=== PATIENT | female | born 1945 | race Caucasian/White ===

== ENCOUNTER 2017-01-31 15:07 | Emergency (ER) | payer OTHER ==
[~2017-01-31] VITALS: Ht 144.8 cm; Wt 52.2 kg
[2017-01-31 15:18] VITALS: BP 138/84
--- NOTE | 2017-01-31 15:36 | ED MVC/FALL/TRAUMA COMPLAINT ---
History of Present Illness General Chief Complaint: Fall Stated Complaint: PT FELL AND HURT HER LT ARM Source: patient, family, old records Exam Limitations: no limitations Vital Signs & Intake/Output Vital Signs & Intake/Output Vital Signs Date Time Temp Pulse Resp B/P B/P Pulse O2 O2 Flow FiO2 Mean Ox Delivery Rate 01/31 1518 99.0 76 15 138/84 96 Room Air Room Air Allergies Coded Allergies: No Known Allergies (01/31/17) Reconcile Medications Esomeprazole (Nexium) 40 MG CAPSULE.DR 1 CAP PO DAILY GERD (Reported) Ibuprofen 600 MG TABLET 1 TAB PO TID PRN PAIN (Reported) with food Ibuprofen 400 MG TABLET 1 TAB PO TID ELBOW FRACTURE Oxycodone HCl/Acetaminophen (Percocet 5-325 MG Tablet) 5 MG-325 MG TABLET 1 TAB PO 4 TIMES/DAY ELBOW FRACTURE Oxycodone HCl/Acetaminophen (Percocet 5-325 MG Tablet) 5 MG-325 MG TABLET 1-2 TAB PO Q6P PRN PAIN Oxycodone HCl/Acetaminophen (Percocet 5-325 MG Tablet) 5 MG-325 MG TABLET 1-2 TAB PO Q6P PRN PAIN Triage Note: PT TO ED FOR C/C OF L ELBOW PAIN AND SWELLING S/P FELL DOWN THREE STAIRS AFTER BEING PULLED BY A DOG LEASH. PT DENIES HITTING HEAD, BUT DOES REPORT THAT SHE BLACKED OUT FOR ?A MINUTE. 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 +CMS TO LUE. Triage Nurses Notes Reviewed? yes HPI: 71F PRESENTING WITH FALL DOWN STAIRS AND ELBOW PAIN. WAS WALKING A DOG, THE DOG PULLED HER DOWN THE STAIRS BY THE LEASH, SHE LANDED ON HER LEFT ELBOW AND SHOULDER. DID NOT HIT HER HEAD. SHE IS UNSURE OF IF SHE LOST CONSCIOUSNESS OR NOT, BUT A FRIEND WAS THERE AND DID NOT SEE HER LOSE CONSCIOUSNESS. SHE WAS AWAKE AND ALERT AFTER. CURRENTLY, SHE COMPLAINS OF LEFT ELBOW PAIN AND SWELLING , AND IS UNABLE TO MOVE THE ELBOW DUE TO PAIN. SHE ALSO HAS PAIN TO THE LEFT SHOULDER AND AXILLA, BUT IS ABLE TO MOVE THESE. SHE HAS INTACT SENSATION IN HER ARM AND FINGERS AND HAS FULL STRENGTH AND RANGE OF MOTION OF THE SHOULDER, HAND, AND FINGERS. SHE DENIES HEADACHE, NAUSEA, VOMITING, CONFUSION, DIZZINESS, LIGHTHEADEDNESS, VISION CHANGE, NECK PAIN, BACK PAIN, CHEST PAIN, ABDOMINAL PAIN. Past History Travel History Traveled to [place] past 21 day No Medical History Any Pertinent Medical History? see below for history Gastrointestinal: GERD Surgical History Surgical History: non-contributory Psychosocial History What is your primary language Yoruba Tobacco Use: Never used ETOH Use: denies use Illicit Drug Use: denies illicit drug use Family History Hx Contributory? No Review of Systems Review of Systems Constitutional: Reports: no symptoms. Eyes: Reports: no symptoms. Ears, Nose, Throat, Mouth: Reports: no symptoms. Respiratory: Reports: no symptoms. Cardiovascular: Reports: no symptoms. Gastrointestinal/Abdominal: Reports: no symptoms. Genitourinary: Reports: no symptoms. Musculoskeletal: Reports: see HPI. Skin: Reports: no symptoms. Neurological/Psychological: Reports: no symptoms. All Other Systems: Reviewed and Negative Physical Exam Physical Exam General Appearance: well developed/nourished, no apparent distress, alert, awake , comfortable Head: atraumatic, normal appearance Eyes: Bilateral: normal appearance. 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 No Severe Sepsis Present: No Septic Shock Present: No Progress Differential Diagnosis: aoritic dissection, abd injury, C/T/L spine injury, ext injury, ICH, pelvis injury, pnemothorax, spinal cord injury Plan of Care: Orders Procedure Date/time Status XRY-SHOULDER COMPLETE-LEFT 01/31 1536 Active XRY-ELBOW 3 OR MORE VIEWS, L 01/31 1522 Active NO EVIDENCE OF SYNCOPE, HEAD INJURY, LOC. PATIENT IS NEUROLOGICALLY INTACT AND AT BASELINE PER PATIENT AND DAUGHTER. LEFT ELBOW WAS PLACED IN POSTERIOR SPLINT AND WILL FOLLOW UP WITH DR. ACUÑA OF ORTHOPEDICS TOMORROW FOR FOLLOW UP. SPOKE WITH DR. ACUÑA WHO AGREES WITH PLAN. (EVE TRAN,HASMUKH) Diagnostic Imaging: Viewed by Me: Radiology Read. Discussed w/RAD: Radiology Read. Radiology Impression: PATIENT: MARY HAYNES PRESENT AGE: 71 PATIENT ACCOUNT NO: [id number] : 47 LOCATION: [facility] ORDERING PHYSICIAN: HASMUKH PRADO MD SERVICE DATE: 01/31/17 EXAM TYPE : RAD - XRY-ELBOW 3 OR MORE VIEWS, L; XRY-SHOULDER COMPLETE-LEFT EXAMINATION: XR ELBOW, LEFT X-RAY SHOULDER, LEFT CLINICAL INFORMATION: Trauma COMPARISON: None TECHNIQUE: AP, lateral, and oblique views of the left elbow. 3 views of the left shoulder were obtained. FINDINGS: LEFT ELBOW: There is an acute fracture of the olecranon process. There is a 0.8 cm distance between the 2 fracture fragments. Significant associated soft tissue swelling and joint effusion noted. No other fracture is seen. There is no evidence of dislocation of the radial head. LEFT SHOULDER: There is no acute fracture or dislocation of the left shoulder. The acromioclavicular and coracoclavicular distances are within normal limits. The soft tissue is unremarkable. The visualized left lung is clear. IMPRESSION: Acute fracture of the left olecranon with associated soft tissue swelling and joint effusion. No acute fracture or dislocation of the left shoulder. DICTATED BY: KATIE FRIED MD DATE/TIME DICTATED:01/31/171599 CUT AND PRINT MACHINE OPERATOR: RONAK DATE/TIME TRANSCRIBED:01/31/171599 Departure Departure Disposition: HOME OR SELF CARE Condition: Stable Clinical Impression Primary Impression: Fracture of olecranon process, left, closed Secondary Impressions: Fall (on) (from) other stairs and steps, initial encounter Referrals: DOMENICO TRAN,ALIVIA ALARCON MD,ENRIQUETA WATTERS (PCP/Family) Additional Instructions: KEEP YOUR ARM SUPPORTED. FOLLOW UP WITH DR. ACUÑA TOMORROW IN HER OFFICE. IF YOU LOSE SENSATION OR COLOR IN YOUR FINGERS COME BACK TO ER IMMEDIATELY. Departure Forms: Customer Survey General Discharge Information Prescriptions: Current Visit Scripts Oxycodone HCl/Acetaminophen (Percocet 5-325 MG Tablet) 1 TAB PO 4 TIMES/DAY #20 TAB Ibuprofen 1 TAB PO TID #30 TAB Oxycodone HCl/Acetaminophen (Percocet 5-325 MG Tablet) 1-2 TAB PO Q6P PRN PAIN #20 TAB Oxycodone HCl/Acetaminophen (Percocet 5-325 MG Tablet) 1-2 TAB PO Q6P PRN PAIN #20 TAB Procedures Splinting Location: LEFT ARM/ELBOW POSTERIOR SPLINT Manual Alignment Performed: No Hand-Made Type: orthoglass Splint: POSTERIOR ELBOW Splint Applied By: splint applied by me Pre-Proc Neuro Vasc Exam: normal Post-Proc Neuro Vasc Exam: normal
[2017-01-31] MEDS ORDERED: NEXIUM40 M1 PO (15:46)
[2017-01-31] MEDS ORDERED: IBUPROFEN600 M1 PO (15:47)
--- NOTE | 2017-01-31 16:18 | RADIOLOGY REPORT ---
EXAMINATION: XR ELBOW, LEFT X-RAY SHOULDER, LEFT CLINICAL INFORMATION: Trauma COMPARISON: None TECHNIQUE: AP, lateral, and oblique views of the left elbow. 3 views of the left shoulder were obtained. FINDINGS: LEFT ELBOW: There is an acute fracture of the olecranon process. There is a 0.8 cm distance between the 2 fracture fragments. Significant associated soft tissue swelling and joint effusion noted. No other fracture is seen. There is no evidence of dislocation of the radial head. LEFT SHOULDER: There is no acute fracture or dislocation of the left shoulder. The acromioclavicular and coracoclavicular distances are within normal limits. The soft tissue is unremarkable. The visualized left lung is clear. IMPRESSION: Acute fracture of the left olecranon with associated soft tissue swelling and joint effusion. No acute fracture or dislocation of the left shoulder.
[2017-01-31] MEDS ORDERED: IBUPROFEN400 M1 PO (16:38)
[2017-01-31] MEDS ORDERED: PERCOCET 5-3251 EACH PO ×3 (16:38→18:10)
== END 2017-01-31 16:55 ==
LOC: ERH 15:07
DX: S52.022A Displaced fracture of olecranon process without intraarticular extension of left ulna, initial encounter for closed fracture (principal); W10.9XXA Fall (on) (from) unspecified stairs and steps, initial encounter; Y92.9 Unspecified place or not applicable; Y93.9 Activity, unspecified
CPT/HCPCS: 73030-LT; 73080-LT

== ENCOUNTER → 2017-02-09 | Day surgery (SDC) | payer OTHER ==
[~2017-02-09] VITALS: Ht 147.3 cm; Wt 52.6 kg
[~2017-02-09] MED LIST: AMBIEN5 M1 PO; IBUPROFEN400 M1 PO; IBUPROFEN600 M1 PO; NEXIUM40 M1 PO; PERCOCET 5-3251 EACH PO
--- NOTE | 2017-02-09 21:38 | Operative Report ---
Operative/Inv Procedure Report Surgery Date: 02/09/17 Name of Procedure: Open reduction and internal fixation of left intra-articular olecranon fracture Pre-Operative Diagnosis: Left displaced intra-articular olecranon fracture Post-Operative Diagnosis: Left displaced intra-articular olecranon fracture; left nondisplaced coronoid fracture Estimated Blood Loss: 10mL Surgeon/Gumming Machine Operator: DOMENICO TRAN,Albaro Mae MD Anesthesia: general endotracheal tube, block IV Fluids: 1000mL Implants: Bjorn 4-hole left olecranon plate Distal cortical screws; proximal locking screws Drains: None Specimens: None Tourniquet: 86min at 250mmHg Condition: Stable Operative/Procedure Note Note: Indication for Procedure: Mrs. Walsh is a 71 year-old right hand dominant female who sustained a left olecranon fracture on 01/31/2017. She was standing on a deck when a dog leash got tangled around her feet, causing her to fall backward down several stairs. She was initially seen in the [place] [facility], where she was xrayed and provisionally splinted. She was then seen in clinic, where her skin was checked and treatment options discussed. After reviewing the risks and alternatives to surgery with the patient and her , she has opted to proceed with open reduction and internal fixation of the olcranon fracture. She was seen and optimized by her primary care physician prior to surgery. Operative Report: Mrs. Walsh arrived at [facility] on 02/09/2017. She was met in the pre- op area, where her past medical history was reviewed and her operative extremity was marked. The patient was then taken to the operating room and placed supine on the OR table. A time-out was performed, in which the patient, the operative extremity, and the planned procedure were confirmed. A regional block was performed by the anesthesiology team. SCDs were applied to bilateral lower legs , but no additional VTE prophylaxis was administered. The patient was then induced under general anesthesia. Pre-operative IV cefazolin was administered. The patient was positioned with a roll under the left scapula and the left arm draped over the chest. Care was taken to pad all bony prominences. The fluoroscopy machine was position prior to draping to verify the AP and lateral views of the elbow. Upon closer imaging, a nondisplaced coronoid fracture was appreciated on the lateral views. A non-sterile tourniquet was applied to the left upper arm. The left arm was then prepped and draped in the usual sterile fashion. The left arm was exsanguinated using an esmarch bandage and the tourniquet raised to 250mmHg. The arm was draped over the chest and an incision was made over the proximal posterior ulna and gently curved laterally around the tip of the olecranon and ending over the distal triceps. The incision. medial and lateral flaps were raised and the frature was exposued. It was oblique in nature with some comminution. The fracture ends were exposed and debrided. The posterolateral capsule was opened to allow for better joint visualization, which allowed for verification of the nondisplaced coronoid fracture. The elbow was extended and the olecranon fracture was reduced with a sharp tenaculum. A 0.045 K-wire was taken lateral to medial to hold the reduction. A four hole olecranon plate was selected and placed over the posterior ulna. A small slit was made in the triceps insertion to allow for proper plate positioning. The plate was held with K-wires and the reduction verified with fluoroscopy. The plate positioning was optimized and distal cortical screws were placed, followed by proximal locking screws. The K-wires were removed and the plate position again verified with fluoro. The remaining cortical shaft screws were placed, as well as the "home run" screw in the tip of the olecranon. The drill bit was placed left in the bone after drilling to verify the length and location of the screw prior to final placement. Once the intra-articular olecranon fracture was stabilized, a 2.7mm unicortical locking screw was placed into the coronoid for stabilization of the nondisplaced fracture. The was done under fluoroscopic guidance. The smaller screw was selected should a larger size be needed if the fracture displaced. Fortunately it did not, and the fixation was stable with gentle range of motion of the elbow. The wound was copiously irrigated with normal saline with bacitracin. The posterolateral capsule was closed with #1 vicryl, followed by closure of the fascia over the plate. The wound was then closed in layers using 0 vicryl and 2 -0 vicryl, followed by interrupted #3-0 prolene for skin. The tourniquet was released after 86min. The incision was dressed with sterile xeroform and gauze, and secured with sterile webril. The left arm was then placed in a long arm posterior splint secured with DAFNE wraps. The patient was the woken from general anesthesia and taken from the OR to the recovery room in stable condition.
--- NOTE | 2017-02-10 09:21 | RADIOLOGY REPORT ---
EXAMINATION: XR ELBOW, LEFT CLINICAL INFORMATION: ORIF left elbow olecranon fracture. COMPARISON: Preoperative images 01/31/2017. TECHNIQUE: Multiple intraoperative images of the left elbow were obtained. FLUOROSCOPY TIME: 0.3 minutes. DOSE AREA PRODUCT: [id number] mGy-m2 NUMBER OF IMAGES: 17. FINDINGS: Images show progressive placement of a plate and multiple screws reducing and fixing a fracture of the olecranon. IMPRESSION: 1. Multiple images from ORIF fracture left olecranon.
== END ==
LOC: STS 02:13
DX: S52.032A Displaced fracture of olecranon process with intraarticular extension of left ulna, initial encounter for closed fracture (principal); S52.045A Nondisplaced fracture of coronoid process of left ulna, initial encounter for closed fracture; W10.8XXA Fall (on) (from) other stairs and steps, initial encounter; K21.9 Gastro-esophageal reflux disease without esophagitis; E78.5 Hyperlipidemia, unspecified
CPT/HCPCS: 73070-LT; C1713; J0131; J0690; J1100; J2250; J2405